=== PATIENT | male | born 1990 | race Two or more races ===

== ENCOUNTER 2022-11-17 11:05 | Emergency (ER) | payer OTHER ==
[~2022-11-17] VITALS: Ht 180.3 cm; Wt 71.2 kg
[2022-11-17 12:26] VITALS: BP 151/88
[2022-11-17] MEDS ORDERED: SUMA50TA2 PO (12:43)
== END 2022-11-17 13:03 | disposition home or self-care (01) ==
LOC: ER 11:05
DX: G44.209 Tension-type headache, unspecified, not intractable (principal); Z90.49 Acquired absence of other specified parts of digestive tract
CPT/HCPCS: 70450

== ENCOUNTER 2024-12-02 07:39 | Emergency (ER) | payer OTHER, MEDICAID ==
[~2024-12-02] VITALS: Ht 180.3 cm; Wt 75.7 kg
[~2024-12-02 07:39] MED LIST: SUMA50TA2 PO
[2024-12-02 08:00] VITALS: BP 138/88; PULSE 120; RESP 18; TEMP 99.4; O2SAT 100
[2024-12-02] MEDS ORDERED: AZIT-43 PO (08:27)
[2024-12-02] MEDS ORDERED: PROM1SOL4 PO (08:27)
[2024-12-02] MEDS ORDERED: GUAI600T78 PO (08:27)
[2024-12-02] MEDS ORDERED: IBUP-1454 PO (08:27)
[2024-12-02] MEDS ORDERED: ACET500T58 PO (08:27)
--- NOTE | 2024-12-02 08:27 | ED.PDOC ---
SOB-HPI HPI Comments 34-year-old male with no MHx presents with a chief complaint of a cough x4 days. Cough is described as productive with green phlegm. Taking [id number] Tylenol with some improvement. Denies fevers chills night sweats unintentional weight loss Denies persistent chest pain, shortness of breath, leg swelling Denies history of asthma nor any breathing conditions Denies history of pneumonia Denies recent international travel Chief Complaint: Cough Time Seen by MD: 07:46 Primary Care Provider: NONE Reviewed notes: Nurses Notes, Medications, Allergies Information Source: Patient Mode of Arrival: Ambulatory Past Medical History PAST MEDICAL HISTORY: Denies Surgical History: Appendectomy Family History Family History: Reviewed,noncontributory to illness Social History Smoker: Non-Smoker Alcohol: Denies ETOH Use Drugs: Denies Drug Use Lives In: Home All Other Systems: Reviewed and Negative (Per HPI) Physical Exam General Appearance: No Apparent Distress, Normal HEENT: Normal ENT Inspection, Pharynx Normal, TMs Normal Neck: Full Range of Motion, Non-Tender, Normal, Normal Inspection Respiratory: Chest Non-Tender, Lungs Clear, No Accessory Muscle Use, No Respiratory Distress, Normal Breath Sounds Cardiovascular: No Edema, No JVD, No Murmur, No Gallop, Normal Peripheral Pulses, Regular Rate/Rhythm Breast Exam: Deferred Gastrointestinal: No Organomegaly, Non Tender, No Pulsatile Mass, Normal Bowel Sounds, Soft Genitalia: Deferred Pelvic: Deferred Rectal: Deferred Extremities: No calf tenderness, Normal capillary refill, Normal inspection, Normal range of motion, Non-tender, No pedal edema Musculoskeletal : Apperance: Normal Neurologic: Alert, No Motor Deficits, Normal Affect, Normal Mood, No Sensory Deficits Cerebellar Function: Normal Reflexes: Normal Skin: Dry, Normal Color, Warm Lymphatic: No Adenopathy Was a procedure done? Was a procedure done?: No Differential Dx Differential Diagnosis: Asthma, Bronchitis, URI X-Ray, Labs, Meds, VS Vital Signs Date Time Temp Pulse Resp B/P (MAP) Pulse Ox O2 Delivery O2 Flow Rate FiO2 12/02/24 08:00 99.4 120 18 138/88 (105) 100 99.4 12/02/24 08:00 120 18 100 Room Air 12/02/24 07:48 18 100 Room Air* 0 21 12/02/24 07:44 99.4 120 18 138/88 (105) 100 X-Ray, Labs, Meds, VS Comment On presentation, the patient is afebrile and has stable vital signs. The patient is overall well-appearing nontoxic on exam. On physical exam, respirations even and unlabored, clear to auscultation bilaterally. Oxygen stable on room air. Viral testing deferred on [place] visit as it does not change the treatment plan Did not have any focal lung findings and therefore chest x-ray was not indicated during this exam Low suspicion of strep pharyngitis given physical exam findings and patient's presenting symptoms No signs of meningismus on exam Overall, the patient is well hydrated and nontoxic. Empiric tx Plan for symptomatic control for fever and pain as needed. The patient was able to tolerate p.o. intake in the ED. at this time, patient is safe for discharge home. The exam findings and plan discussed. We will discharge home with PCP follow up and strict return precautions. Discussed that cough can linger up to 6 weeks after viral URI Supportive care and return precautions discussed Counseled viral infection and explained that antibiotics would not be helpful in resolving the illness sooner. Recommended vitamin C, rest, handwashing, and symptomatic care. Expect 2-week course with possibly of cough lingering up to 6 weeks. Nonpharmacological remedies for fluids has been recommended as well Time of 1ST Reevaluation: 08:24 Reevaluation 1ST: Improved Patient Education/Counseling: Diagnosis, Treatment Family Education/Counseling: Diagnosis, Treatment Departure 1 Departure Time of Disposition: 08:25 Impression: Primary Impression: Bronchitis Disposition: HOME / SELF CARE / HOMELESS Condition: Stable e-Prescriptions Acetaminophen (Acetaminophen) 500 Mg Tab 500 MG PO Q6HP PRN for 10 Days, #40 TAB 0 Refills Prov: JAZZY KASPER BLENDER OPERATOR 12/02/24 Ibuprofen (Ibuprofen) 600 Mg Tab 1 TAB PO TID for 10 Days, #30 TAB 0 Refills Prov: JAZZY KASPER BLENDER OPERATOR 12/02/24 Promethazine-Dm (Promethazine Dm 6.25-15 mg/5Ml) 1 Dinora Dinora 5 ML PO TID for 10 Days, #150 ML 0 Refills Prov: JAZZY KASPER BLENDER OPERATOR 12/02/24 Guaifenesin (Mucinex) 600 Mg Tab 1 TAB PO BID for 7 Days, #14 TAB 0 Refills Prov: JAZZY KASPER NP 12/02/24 Azithromycin (Azithromycin) 250 Mg Tab 250 MG PO DAILY MDD 500 for 5 Days, #6 TAB 0 Refills 2 TABLETS ORALLY ON DAY ONE, THEN 1 TABLET ORALLY DAILY FOR 4 DAYS Prov: JAZZY KASPER BLENDER OPERATOR 12/02/24 Discharged With: Self Critical Care Note Critical Care Time?: No Stability Stability form required: No Heart Score Heart Score: Heart Score Response (Comments) Value History N/A 0 EKG N/A 0 Age N/A 0 Risk Factors N/A 0 Troponin N/A 0 Total 0 JAZZY KASPER BLENDER OPERATOR Dec 02, 2024 08:27
[2024-12-02] MEDS: methylPREDNISolone SOD SUCC 125 MG/2 ML VL IM ONE (08:37)
== END 2024-12-02 08:42 | disposition home or self-care (01) ==
LOC: ER 07:39
DX: J40 Bronchitis, not specified as acute or chronic (principal); Z90.49 Acquired absence of other specified parts of digestive tract
CPT/HCPCS: 96372; 99283; J2919